=== PATIENT | female | born 1985 | race Caucasian/White ===

== ENCOUNTER 2024-05-14 13:19 | Outpatient (CLI) | payer BC, SELFPAY ==
--- NOTE | ~2024-05-14 | XR_ITS ---
XR chest 2V Ordering provider: Luis A Noriega History: 39 years Female with . PRODUCTIVE COUGH/PT AND SHIELDED . Comparison: June 05, 2007 FINDINGS: MEDIASTINUM: The cardiac silhouette is not enlarged. LUNGS: No infiltrates, effusions or pneumothorax. OTHER: No free air under the diaphragm. IMPRESSION: No acute cardiopulmonary pathology. Reviewed, dictated and finalized at location A.
== END 2024-05-14 13:20 | disposition home or self-care (01) ==
PROVIDERS: PCP Family Medicine
DX: O99.519 Diseases of the respiratory system complicating pregnancy, unspecified trimester (principal); R05.1 Acute cough; Z3A.00 Weeks of gestation of pregnancy not specified
CPT/HCPCS: 71046